=== PATIENT | female | born 1935 | race Caucasian/White ===

== ENCOUNTER → 2024-07-27 | Outpatient (CLI) | payer MEDICARE, SELFPAY ==
[2024-07-27 16:29] LABS: Alanine Aminotransferase 66 U/L (10-49); Albumin, Serum 4.4 gm/dL (3.4-4.8); Alkaline Phosphatase 115 U/L (46-116); Anion Gap 7 (7-16); Aspartate Amino Transferase 77 U/L (0-34); BUN/Creatinine Ratio 23 Ratio (12-20); Bilirubin,Direct 0.1 mg/dL (0.0-0.3); Bilirubin,Total 0.4 mg/dL (0.3-1.2); Blood Urea Nitrogen 34 mg/dL (9-23); Calcium 9.3 mg/dL (8.3-10.6); Carbon Dioxide 29.4 mMol/L (20.0-31.0); Chloride 103 mMol/L (98-107); Creatinine (Component) 1.5 mg/dL (0.6-1.3); Glucose 121 mg/dL (74-106); Osmolality,Calculated 286 (275-295); Phosphorous 3.4 mg/dL (2.4-5.1); Potassium 4.5 mMol/L (3.4-5.1); Sodium 139 mMol/L (136-145); Total Protein 6.7 gm/dL (5.7-8.2); eGFR 33 See Note
== END | disposition home or self-care (01) ==
LOC: COPL 14:27
PROVIDERS: PCP Family Medicine; Referring Provider Family Medicine; Visit Provider Internal Medicine Cardiovascular Disease
DX: I48.21 Permanent atrial fibrillation (principal); N18.2 Chronic kidney disease, stage 2 (mild); R74.01 Elevation of levels of liver transaminase levels
CPT/HCPCS: 36415; 80048; 80069; 80076; 84100

== ENCOUNTER → 2024-09-20 | Outpatient (CLI) | payer MEDICARE, SELFPAY ==
[2024-09-20 11:34] LABS: Glucose Estimated Average 117 mg/dL (80-131); Hemoglobin A1C 5.7 % Hgb (4.8-6.0)
[2024-09-20 11:50] LABS: Alanine Aminotransferase 50 U/L (10-49); Albumin, Serum 4.1 gm/dL (3.4-4.8); Alkaline Phosphatase 90 U/L (46-116); Anion Gap 7 (7-16); Aspartate Amino Transferase 46 U/L (0-34); BUN/Creatinine Ratio 18 Ratio (12-20); Bilirubin,Direct 0.1 mg/dL (0.0-0.3); Bilirubin,Total 0.4 mg/dL (0.3-1.2); Blood Urea Nitrogen 22 mg/dL (9-23); Calcium 9.1 mg/dL (8.3-10.6); Carbon Dioxide 34.3 mMol/L (20.0-31.0); Chloride 102 mMol/L (98-107); Creatinine (Component) 1.2 mg/dL (0.6-1.3); Glucose 117 mg/dL (74-106); Osmolality,Calculated 289 (275-295); Phosphorous 3.1 mg/dL (2.4-5.1); Potassium 4.4 mMol/L (3.4-5.1); Sodium 143 mMol/L (136-145); Total Protein 6.5 gm/dL (5.7-8.2); eGFR 44 See Note
[2024-09-20 13:09] LABS: Creatinine MALB Rnd Ur 22 mg/dL (30-125); Microalbumin, Random Urine < 3 mg/L (0-300)
== END | disposition home or self-care (01) ==
LOC: COPL 10:40
PROVIDERS: PCP Family Medicine; Referring Provider Internal Medicine Cardiovascular Disease; Visit Provider Internal Medicine Cardiovascular Disease
DX: E11.22 Type 2 diabetes mellitus with diabetic chronic kidney disease (principal); N18.2 Chronic kidney disease, stage 2 (mild); R74.01 Elevation of levels of liver transaminase levels; I48.21 Permanent atrial fibrillation
CPT/HCPCS: 36415; 80048; 80076; 82043; 82570; 83036; 84100

== ENCOUNTER → 2024-12-12 | Outpatient (CLI) | payer MEDICARE, SELFPAY ==
[2024-12-12 10:35] LABS: Basophils % (Auto) 1 % (0-2.5); Eosinophils # (Auto) 0.1 Thou/mm3 (0.0-0.5); Eosinophils % (Auto) 2 % (0-10); Immature Granulocytes % (Auto) 0 % (0-0); Immature Granulocytes Auto 0.02 Thou/mm3 (0.00-0.00); Lymphocytes # (Auto) 2.1 Thou/mm3 (1.0-4.8); Lymphocytes % (Auto) 32 % (10-50); Mean Corpuscular HGB Conc 32.5 g/dl (31.0-37.0); Mean Corpuscular Hemoglobin 32.8 pg (25.0-35.0); Mean Corpuscular Volume 101 fL (80-100); Monocytes # (Auto) 0.8 Thou/mm3 (0.0-0.8); Monocytes % (Auto) 13 % (0-12); Neutrophils # (Auto) 3.5 Thou/mm3 (1.8-7.7); Neutrophils % (Auto) 53 % (37-80); Nucleated Red Blood Cell % 0 /100 WBC (0); Platelet Count 236 Thou/mm3 (140-440); RDW Standard Deviation 50.4 fL (36.4-46.3); Red Blood Count 3.96 Miln/mm3 (4.00-5.20); White Blood Count 6.7 Thou/mm3 (3.6-11.0)
[2024-12-12 10:54] LABS: Alanine Aminotransferase 20 U/L (10-49); Albumin, Serum 4.4 gm/dL (3.4-4.8); Albumin/Globulin Ratio 1.8 (1.2-2.2); Alkaline Phosphatase 84 U/L (46-116); Anion Gap 7 (7-16); Aspartate Amino Transferase 28 U/L (0-34); BUN/Creatinine Ratio 19 Ratio (12-20); Bilirubin,Total 0.4 mg/dL (0.3-1.2); Blood Urea Nitrogen 23 mg/dL (9-23); Calcium 9.1 mg/dL (8.3-10.6); Calcium (Corrected) 9.1 mg/dL (8.5-10.1); Carbon Dioxide 31.7 mMol/L (20.0-31.0); Chloride 101 mMol/L (98-107); Creatinine (Component) 1.2 mg/dL (0.6-1.3); Globulin 2.5 gm/dL (2.3-3.5); Glucose 135 mg/dL (74-106); Osmolality,Calculated 285 (275-295); Potassium 4.1 mMol/L (3.4-5.1); Sodium 140 mMol/L (136-145); Total Protein 6.9 gm/dL (5.7-8.2); eGFR 44 See Note
[2024-12-12 12:04] LABS: Glucose Estimated Average 123 mg/dL (80-131); Hemoglobin A1C 5.9 % Hgb (4.8-6.0)
== END | disposition home or self-care (01) ==
LOC: COPL 09:45
PROVIDERS: PCP Family Medicine; Referring Provider Family Medicine; Visit Provider Family Medicine
DX: E11.22 Type 2 diabetes mellitus with diabetic chronic kidney disease (principal); N18.9 Chronic kidney disease, unspecified; E11.42 Type 2 diabetes mellitus with diabetic polyneuropathy
CPT/HCPCS: 36415; 80053; 83036; 85025

== ENCOUNTER 2025-01-11 10:30 | Outpatient (RCR) | payer MEDICARE, SELFPAY ==
--- NOTE | 2024-12-19 09:59 | PT.OIERPT ---
PT OP Initial Eval Patient Information Outpatient Physical Therapy Treatment Date: 12/19/24 Visit Reasons: Neuropathy Medical Diagnosis: Peripheral Neuropathy; Falls; Decrease balance Treatment Dx #1: BLE Weakness Treatment Dx #2: Falls Start of Care: 12/19/24 Date of Onset: 1.5 years ago Smoking Status Smoking Status: Never smoker Initial Assessment Subjective: Pt is a 89 y/o female reports of BLE weakness and constant numbness since her back surgery where her bottom back was fused. Pt can still transfer and perform bed mobility, however, has not walked since the surgery. Pt has limitation with prolonged sitting, standing, and performing recreational activities. Pt owns a manual w/c, power w/c, and does not own a walker. Pt is currently a resident at [facility]. Objective: BLE AROM: all motions are 75% towards end range BLE MMTs: grossly 3+/5 Sit-Stand Test: 4 reps Assessment: Pt demonstrate BLE weakness and overall mobility leading to difficulty with ADLs. Pt will benefit from physical therapy to increase ROM, strength, and work on ambulation as able Short Term and Afternoon Babysitter Goals 1) Increase BLE AROM WNL in 9 wks to be able to perform self care activities 2) Increase BLE MMTs grossly to 4-/5 in 9 wks to be able to perform chores 3) Increase sit-stand reps to 8 in 9 wks to be able to stand longer 4) Increase overall endurance to be able to walk with walker within her resident 5) Indep with HEP Treatment Plan 1) Manual Therapy 2) Therapeutic Activities 3) Therapeutic Exercises 4) Balance Training 5) Gait Training Frequency and Duration: 2 x wk for 9 wks Certification Dates: 12/19/24 to 03/21/25 Procedure Charges OP PT Eval Mod Complex 30 minutes: Yes
--- NOTE | 2024-12-26 10:52 | PT.ODAYNRPT ---
PT Outpatient Daily Note OP Daily Note Outpatient Physical Therapy Treatment Date: 12/26/24 Visit Reasons: Neuropathy Subjective: Pt c/o weakness. Pt shared she lives at [facility], they supply meals but she performs all other self care activities. Objective: Please see flow sheet for ther ex list. Assessment: Interventions given alternating sitting and standing to maximize pt participation. Plan: Assess response to treatment. Length of Time (minutes) of Treatment: 30 Minutes PIPE FITTER SUPERVISOR Service Modifier Method I: Divide the number of min of care provided by the PIPE FITTER SUPERVISOR/LAVINIA by the total min of care provided then multiply by 100. If greater than 11 percent modifier is required. Method II: Divide the total time of care provided to patient by 10 (round to the nearest whole number) and add 1 min. to set the minimum time requirement. If treatment total was 60 min., then 10% of 6 min PT CQ modifier applied: CQ Modifier applied Procedure Charges Therapeutic Exercise 30 minutes: Yes
--- NOTE | 2024-12-28 10:55 | PT.ODAYNRPT ---
PT Outpatient Daily Note OP Daily Note Outpatient Physical Therapy Treatment Date: 12/28/24 Visit Reasons: Neuropathy Subjective: Pt's legs feels weak. Pt almost fell a few days ago. Objective: Please see flow chart for list of ther ex performed Assessment: left knee buckle with standing marching towards the end of exercise. Pt unable to perform standing calf raise due to gastroc weakness modified to sitting position Plan: Continue with PT Length of Time (minutes) of Treatment: 30 Minutes Procedure Charges Therapeutic Exercise 30 minutes: Yes
--- NOTE | 2025-01-02 11:23 | PT.ODAYNRPT ---
PT Outpatient Daily Note OP Daily Note Outpatient Physical Therapy Treatment Date: 01/02/25 Visit Reasons: Neuropathy Subjective: Pt denies of soreness post PT session. Pt mentioned her left knee feels weaker. Objective: Please see flow chart for list of ther ex performed Assessment: x2 knee buckle on the left LE during sit to stand exercise, however, able to catch self with hands on the parallel bar. Pt fatigue post PT session Plan: Continue with PT Length of Time (minutes) of Treatment: 30 Minutes Procedure Charges Therapeutic Exercise 30 minutes: Yes
--- NOTE | 2025-01-04 12:52 | PT.ODAYNRPT ---
PT Outpatient Daily Note OP Daily Note Outpatient Physical Therapy Treatment Date: 01/04/25 Visit Reasons: Neuropathy Subjective: Pt's legs sore after last session. Objective: Please see flow chart for list of ther ex performed Assessment: patient able to do side step 2 x 3 laps with 2 incident of left knee buckling. Pt is progressing with LE endurance and strength by being able to stand longer in PT session Plan: Continue with PT Length of Time (minutes) of Treatment: 30 Minutes Procedure Charges Therapeutic Exercise 30 minutes: Yes
--- NOTE | 2025-01-09 15:09 | PT.ODAYNRPT ---
PT Outpatient Daily Note OP Daily Note Outpatient Physical Therapy Treatment Date: 01/09/25 Visit Reasons: Neuropathy Subjective: Pt reports she is more tired today that usual, she had another doctor appointment earlier. Objective: Please see flow sheet for ther ex list. Assessment: Pt presents in clinic with decrease endurance, B UE shaky during STS exercise. Plan: Continue with pOC. Length of Time (minutes) of Treatment: 30 Minutes Procedure Charges Therapeutic Exercise 30 minutes: Yes
--- NOTE | 2025-01-11 10:33 | PT.ODAYNRPT ---
PT Outpatient Daily Note OP Daily Note Outpatient Physical Therapy Treatment Date: 01/11/25 Visit Reasons: Neuropathy Subjective: Pt's legs are okay. Pt mentioned it was sore after last session. Pt also notice sit to stand is getting easier at home. Objective: Please see flow chart for list of ther ex performed Assessment: tolerate exercises with minimal pain Plan: Continue with PT Length of Time (minutes) of Treatment: 30 Minutes Procedure Charges Therapeutic Exercise 30 minutes: Yes
== END 2025-01-13 23:59 | disposition home or self-care (01) ==
LOC: CPTX 10:30
PROVIDERS: PCP Psychiatry & Neurology Neurology; Referring Provider Psychiatry & Neurology Neurology; Visit Provider Psychiatry & Neurology Neurology
DX: R53.1 Weakness (principal); R26.2 Difficulty in walking, not elsewhere classified; G62.9 Polyneuropathy, unspecified; Z98.890 Other specified postprocedural states
CPT/HCPCS: 97110; 97162

== ENCOUNTER 2025-02-08 10:00 | Outpatient (RCR) | payer MEDICARE, SELFPAY ==
--- NOTE | 2025-01-23 10:49 | PT.ODAYNRPT ---
PT Outpatient Daily Note OP Daily Note Outpatient Physical Therapy Treatment Date: 01/23/25 Visit Reasons: Neuropathy Subjective: Pt reports continuing use of w/c and sometimes use electric powered w/c. Pt shared that she has neuropathy on B LE. Objective: Please see flow sheet for ther ex list. Assessment: Pt B knee buckled during GT in parallel bars, pt able to hold self up using B UE from bars and LAST MODEL MAKER assisted for pt to recover standing position. Pt able to ambulate back to chair then rested a few minutes. Plan: Continue with pOC. Length of Time (minutes) of Treatment: 30 Minutes LAST MODEL MAKER Service Modifier Method I: Divide the number of min of care provided by the LAST MODEL MAKER/AMUSEMENT RIDE OPERATOR by the total min of care provided then multiply by 100. If greater than 11 percent modifier is required. Method II: Divide the total time of care provided to patient by 10 (round to the nearest whole number) and add 1 min. to set the minimum time requirement. If treatment total was 60 min., then 10% of 6 min PT CQ modifier applied: CQ Modifier applied Procedure Charges Therapeutic Exercise 30 minutes: Yes
--- NOTE | 2025-01-25 13:05 | PT.ODAYNRPT ---
PT Outpatient Daily Note OP Daily Note Outpatient Physical Therapy Treatment Date: 01/25/25 Visit Reasons: Neuropathy Subjective: No new complalints. Objective: Please see flow sheet for ther ex list. Assessment: Pt relied heavy on PSYCH TECH to stand from sitting in w/c due to poor LE strength. Plan: Continue with pOC. Length of Time (minutes) of Treatment: 30 Minutes Procedure Charges Therapeutic Exercise 30 minutes: Yes
--- NOTE | 2025-01-30 12:47 | PT.ODS1RPT ---
PT OP Progress/Discharge Note Date of Service: 01/30/25 Progress Note/DC Note Progress Note/Discharge Note: Progress Note Patient Information Visit Reasons: Neuropathy Medical Diagnosis: Peripheral Neuropathy; Falls; Decrease Balance Treatment Dx #1: BLE Weakness Treatment Dx #2: Falls Service Continue Service or Discharge: Continue Service Certification Date Certification Dates: 01/30/25 to 05/02/25 Status Subjective: Pt feels that she's doing better in physical therapy. Pt has been able to start walking more inside the parallel bars. Pt also reports of increase BLE strength allowing her to stand and perform light ADLs at home with less limitation. Pt still has limitation with prolonged activities due to BLE fatigue. Pt will like to continue physical therapy to increase BLE strength, balance, and work on endurance. Objective: BLE AROM: all motions are 85% towards end range BLE MMTs: grossly 3+/5 Sit-Stand Test: 6 reps Gait Observation: narrow suni with decrease step length with FWW Assessment: Pt is slowly progressing with BLE strength, endurance, and balance allowing her to start ambulating in therapy with walker. Despite Pt's improvement Pt still exhibit BLE weakness, decondition, and decrease dynamic balance. Pt has not met set goals and will continue to benefit from physical therapy to improve impairments; thank you for your referrals. Plan: Continue with PT/POC and add 6 sessions (2 x wk for 3 wks Procedure Charges Gait Training 15 minutes: Yes Therapeutic Exercise 15 minutes: Yes
--- NOTE | 2025-02-01 10:55 | PTNOTE_ITS ---
PT Outpatient Daily Note OP Daily Note Outpatient Physical Therapy Treatment Date: 02/01/25 Visit Reasons: Neuropathy Subjective: Pt reports she was content to be able to walk in the clinic last time she came to PT. Objective: Please see flow sheet for ther ex list. Assessment: Pt demonstrates improved endurance, ambulated ~30ft x 2 using FWW. Plan: Continue with POC. Length of Time (minutes) of Treatment: 30 Minutes INSTALLATION SUPERVISOR Service Modifier Method I: Divide the number of min of care provided by the INSTALLATION SUPERVISOR/LAVINIA by the total min of care provided then multiply by 100. If greater than 11 percent modifier is required. Method II: Divide the total time of care provided to patient by 10 (round to the nearest whole number) and add 1 min. to set the minimum time requirement. If treatment total was 60 min., then 10% of 6 min PT CQ modifier applied: CQ Modifier applied Procedure Charges Therapeutic Exercise 30 minutes: Yes
--- NOTE | 2025-02-08 10:32 | PTNOTE_ITS ---
PT Outpatient Daily Note OP Daily Note Outpatient Physical Therapy Treatment Date: 02/08/25 Visit Reasons: Neuropathy Subjective: Pt reports feeling progress, getting stronger. Objective: Please see flow sheet for ther ex list. Assessment: Pt demonstrates increase endurance and LE strength, ambulated ~150 ft in clinic today using FWW with one seated rest break. Plan: Continue with pOC, work on STS. Length of Time (minutes) of Treatment: 30 Minutes LABORATORY MANAGER Service Modifier Method I: Divide the number of min of care provided by the LABORATORY MANAGER/LAVINIA by the total min of care provided then multiply by 100. If greater than 11 percent modifier is required. Method II: Divide the total time of care provided to patient by 10 (round to the nearest whole number) and add 1 min. to set the minimum time requirement. If treatment total was 60 min., then 10% of 6 min PT CQ modifier applied: CQ Modifier applied Procedure Charges Therapeutic Exercise 30 minutes: Yes
== END 2025-02-12 23:59 | disposition home or self-care (01) ==
LOC: CPTX 10:00
PROVIDERS: PCP Psychiatry & Neurology Neurology; Referring Provider Psychiatry & Neurology Neurology; Visit Provider Psychiatry & Neurology Neurology
DX: R53.1 Weakness (principal); R20.0 Anesthesia of skin; Z91.81 History of falling; G62.9 Polyneuropathy, unspecified
CPT/HCPCS: 97110; 97116

== ENCOUNTER 2025-02-12 18:56 | Emergency (ER) | payer MEDICARE, SELFPAY ==
[2025-02-12] VITALS (14 sets, daily range): BP systolic 121–235; BP diastolic 52–110; PULSE 60–168; RESP 16–36; TEMP 36.8–37.2; O2SAT 91–97; BMI 34.5
--- NOTE | 2025-02-12 19:48 | PD.EDEPIST ---
ED Epistaxis RME/HPI General Chief complaint: Epistaxis/Nasal Foreign Body Stated complaint: NOSE BLEED Time Seen by Provider: 02/12/25 20:12 Arrival date/time: 02/12/25 18:56 RME / HPI RME / HPI Narrative: Dr. Morillo?s Main ED Evaluation: 89yo female JAYDE from home presents to the ED for a chief complaint of epistaxis. 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 She is on blood thinners, but does not know why. Patient denies any trauma. She denies any other associated symptoms. NKA. Related Data Home Medications ?Medication ?Instructions ?Recorded ?Confirmed vilazodone 40 mg tablet (Viibryd) 40 mg PO DAILY DEPRESSION ##0 04/02/13 simvastatin 40 mg tablet (Zocor) 40 mg PO HS CHOLESTEROL #0 tabs 05/21/14 tramadol 50 mg tablet (Ultram) 50 mg PO Q8HR PRN PAIN #0 tabs 05/21/14 Memantine Hcl * (NAMENDA *) 28 mg PO QDAY DEMENTIA #0 tabs 02/21/15 amlodipine 5 mg tablet (Norvasc) 5 mg PO QDAY High Blood Pressure 05/16/15 #0 tabs hydrochlorothiazide 25 mg tablet 25 mg PO QAM Diuretic #0 tabs 05/16/15 Losartan Potassium * (COZAAR *) 100 mg PO QDAY High Blood Pressure 06/16/15 #0 tabs hydroxyzine HCl 25 mg tablet 25 mg PO Q8HR PRN ANXIETY #0 tabs 06/16/15 metoprolol succinate 100 mg 100 mg PO QDAY High Blood Pressure 06/16/15 tablet,extended release 24 hr ##0 (Toprol XL) gabapentin 300 mg capsule 300 mg PO TID #0 caps 07/22/15 quetiapine 100 mg tablet (Seroquel) 100 mg PO HS #0 tabs 07/22/15 Allergies Allergy/AdvReac Type Severity Reaction Status Date / Time NKA* Allergy Uncoded 02/12/25 19:24 Review of Systems Review of Systems Systems Reviewed: All systems reviewed, normal except as documented Past Medical History Past Medical History CARDIAC: Positive Hypertension; Negative Congestive Heart Failure RESPIRATORY: Negative Chronic Obstructive Pulmonary Disease (COPD) GENITOURINARY: Negative Renal Disease ENDOCRINE: Negative Diabetes Mellitus Type 1 or Diabetes Mellitus Type 2 Social History SMOKING STATUS: Never smoker ED Exam Narrative Physical exam: GEN. APPEARANCE: The patient is alert awake oriented X-3 in no distress, lying down comfortably, does not look ill/toxic. Patient has good eye contact. Patient is cooperative. VITALS: All vitals were reviewed and the pulse ox is 93% on room air which is normal according to my interpretation. HEENT: Normocephalic, atraumatic. Pupils are equal and reactive. Oral mucosa is moist. Patent Nares NECK: Supple, nontender, no thyromegaly, no meningismus, no JVD CHEST: Symmetrical, atraumatic, and with equal expansion , Nontender on palpation no deformity and no crepitus. CARDIOVASCULAR: Heart regular rhythm no murmur or gallop rub or extra beats. LUNGS: Clear to auscultation bilaterally with symmetrical chest rise. No laboring tachypnea or wheezing. No intercostal subcostal retraction. No rales and no rhonchi. ABDOMEN: Soft, flat, nontender to palpation, no guarding or rebound tenderness. There are no abnormal masses palpated. Active and normal bowel sounds. EXTREMITIES: Nontender. No edema. No cyanosis. Patient is able to move all 4 extremities well, with full ROM and good CSM. SKIN: Warm and dry, no jaundice or rashes noted. NEURO: Patient is SAGASTUME x 4, Cranial nerves II through XII grossly intact. There is no focal neurologic deficits noted. GCS is 15, PNS and CENTER MACHINE OPERATOR appear grossly intact. PSYCHIATRIC: Patient is in normal mood and affect. Course Quality Measures none Orders Category Date Time Status IV [Insert IV] STAT Care 02/12/25 19:42 Active CBC Stat Lab 02/12/25 20:30 Completed CMP [Comprehensive Metabolic Panel] Stat Lab 02/12/25 20:30 Completed PT [Prothrombin Time with INR] Stat Lab 02/12/25 20:30 Completed Type and Screen Stat Lab 02/12/25 20:30 Completed LORazepam [Ativan] Med 02/12/25 22:50 Discontinued 0.5 mg PO X1 ONE Labetalol IV [Trandate IV] Med 02/12/25 20:13 Discontinued 10 mg IVP X1 ONE Tranexamic Acid Inj Med 02/12/25 21:26 Discontinued 500 mg TOP NOW ONE hydrALAZINE INJ [Apresoline Inj] Med 02/12/25 21:24 Discontinued 10 mg IVP X1 ONE Reevaluation(s) Reevaluation #1: Patient is still having epistaxis. TXA ordered. She is also still hypertensive. Hydralazine 10mg ordered. Time: 21:19 Reevaluation #2: Rhino rocket was removed. No blood noted on the rhino rocket or in the patient's right nare. Patient is breathing comfortably. Patient is stable to be discharged home. Time: 23:41 Vital Signs Vital signs: Vital Signs Temperature 98.3 F 02/12/25 19:03 Pulse Rate 60 02/12/25 19:03 Respiratory Rate 19 02/12/25 19:03 Blood Pressure 197/104 H 02/12/25 19:03 Pulse Oximetry (%) 93 L 02/12/25 19:03 Oxygen Delivery Method Room Air 02/12/25 19:03 PROCEDURES: Epistaxis Control Time Out Performed: No Nostril: right Nose Prepped With: other (TXA) Direct Inspection: yes Clots Removed by: blowing nose and suction Device Inserted: other (7.5 rhino rocket which was removed and replaced with a 5 rhino rocket) Patient Tolerated Procedure: Well and No Complications Epistaxis MDM Narrative MDM Narrative:: Scribe Attestation: 02/12/25 - Rachel Moore am scribing for and in the presence of Dr. Morillo. Patient presents with a nosebleed that started this spontaneously. Patient is taking a blood thinner. Vital signs exam as listed. Concern for anterior epistaxis, patient without any trauma, no fevers no chills no face pain. Less likely acute intracranial trauma facial trauma, intracranial space-occupying lesion, arteriovenous malformation. Bleeding is oozing not brisk nor pulsatile. Proceeded with providing patient with direct pressure along the epistaxis, unclear if its bilateral naris at this time appears to be just the right nare. After period of applying direct pressure, patient's blood pressure remained greater than 200, and patient epistaxis was not well-controlled when the pressure device on patient's stairs was removed. Provided patient with her home dose of her blood pressure medication as well as a dose of IV blood pressure medication here. Also inserted a Rhino Rocket soaked in TXA. Bleeding was well-controlled, blood pressure significantly proved patient felt better. Patient was concerned that there was still some oozing from the Rhino Rocket minimal mucus was appreciated. I did remove the Rhino Rocket, did not appreciate any bleeding however there was a little bit of blood in the right nare, nothing coming out of the left nare. I did replace a right sided Rhino Rocket size 5 soaked in TXA in the right nare. Left-sided for period of time. Went to reevaluate the patient, no more bleeding from the nare, blood pressure well-controlled, no more bleeding appreciated. Removed the Rhino Rocket, Rhino Rocket was clear, no blood on the Rhino Rocket anymore. No recurrence of bleeding. Patient remained hemodynamically stable not in distress with labs reassuring will discharge home with close return precautions follow-up with her primary care doctor. Patient data External records reviewed:: [facility] previous records (Per chart review, patient has no relevant previous ED visits or admissions to this facility.) and EMS form Clinical information provided by:: patient Social determinants that could affect healthcare access:: none Patient has the following chronic illnesses:: HTN How is presenting disease/condition affected by chronic disease/condition?: exacerbated by Evaluation data The following diagnostics were reviewed and interpreted by me:: lab results Lab and/or radiology exams considered but not ordered:: none Interpretation Summary: CBC and CMP normal. Medications / Prescriptions Medications or Prescriptions considered but not ordered:: none Medication administrations:: Medication Administration History Discontinued Medications Hydralazine HCl (Hydralazine Inj 20 Mg/Ml Vial) 10 mg IVP X1 ONE Stop: 02/12/25 21:25 Last Admin: 02/12/25 21:40 Dose: 10 mg Documented By: CG Labetalol HCl (Labetalol Inj 5 Mg/Ml Vial 20 Ml) 10 mg IVP X1 ONE Stop: 02/12/25 20:14 Last Admin: 02/12/25 20:50 Dose: 10 mg Documented By: CB Lorazepam (Lorazepam 0.5 Mg Tablet) 0.5 mg PO X1 ONE Stop: 02/12/25 22:51 Last Admin: 02/12/25 22:57 Dose: 0.5 mg Documented By: CG Tranexamic Acid (Tranexamic Acid Inj 1,000 Mg/10 Ml Vial) 500 mg TOP NOW ONE Stop: 02/12/25 21:27 Last Admin: 06/30/25 21:41 Dose: 500 mg Documented By: CG see above Consultations Consultation(s) initiated? (list below): No Diagnosis Epistaxis Differential Diagnosis: anterior epistaxis, posterior epistaxis and other (medication side effect) Most likely diagnosis given after review of the tests above:: see clinical impression below Admission Indicated Admission indicated?: not indicated Admission Request Was there a request for admission?: No Disposition Plan Disposition Plan: Discharge Discharge Attestation Discharge Attestation: The patient and all family members were given an opportunity to ask questions and understood the discharge instructions. Discharge instructions specifically effects, indications for sooner follow up or return to the emergency department, and the expected course of current diagnosis. Patient condition: Stable Discharge Plan Plan Patient Disposition: HOME (Self Care) Prescriptions/Referrals Prescriptions/Med Rec: No Action vilazodone [Viibryd] 40 MG tablet 40 mg PO DAILY Qty: 0 tramadol [Ultram] 50 MG tablet 50 mg PO Q8HR PRN (Reason: PAIN) Qty: 0 Patient Comments: FOR PAIN, NOT TO EXCEED 8 TABS IN 24 HRS simvastatin [Zocor] 40 MG tablet 40 mg PO HS Qty: 0 Memantine Hcl * (NAMENDA *) tablet 28 mg PO QDAY Qty: 0 amlodipine [Norvasc] 5 MG tablet 5 mg PO QDAY Qty: 0 hydrochlorothiazide 25 MG tablet 25 mg PO QAM Qty: 0 metoprolol succinate [Toprol XL] 100 MG tablet extended release 24 hr 100 mg PO QDAY Qty: 0 hydroxyzine HCl 25 MG tablet 25 mg PO Q8HR PRN (Reason: ANXIETY) Qty: 0 Losartan Potassium * (COZAAR *) 100 MG tablet 100 mg PO QDAY Qty: 0 quetiapine [Seroquel] 100 MG tablet 100 mg PO HS Qty: 0 gabapentin 300 MG capsule 300 mg PO TID Qty: 0 Referrals: Eva Ozuna MD [Primary Care Provider] - In 1 week Problem List Clinical Impression: Epistaxis Patient/Caregiver Discharge Instructions Education Materials: ED Epistaxis (Adult) Print Language: Kyrgyz Stand Alone Forms: Georgette Award Info., Patient Portal Info Letter
[2025-02-12] MEDS: LABETALOL INJ 5 MG/ML VIAL 20 ML 10 MG IVP (20:50)
[2025-02-12 21:00] LABS: Basophils # (Auto) 0.1 Thou/mm3 (0.0-0.2); Basophils % (Auto) 1 % (0-2.5); Eosinophils # (Auto) 0.1 Thou/mm3 (0.0-0.5); Eosinophils % (Auto) 2 % (0-10); Hematocrit 41.2 % (36.0-46.0); Hemoglobin 13.6 g/dL (12.0-16.0); Immature Granulocytes Auto 0.03 Thou/mm3 (0.00-0.00); Lymphocytes # (Auto) 2.7 Thou/mm3 (1.0-4.8); Lymphocytes % (Auto) 35 % (10-50); Mean Corpuscular HGB Conc 33.0 g/dl (31.0-37.0); Mean Corpuscular Hemoglobin 32.3 pg (25.0-35.0); Mean Corpuscular Volume 98 fL (80-100); Monocytes # (Auto) 0.9 Thou/mm3 (0.0-0.8); Monocytes % (Auto) 12 % (0-12); Neutrophils # (Auto) 3.9 Thou/mm3 (1.8-7.7); Neutrophils % (Auto) 50 % (37-80); Nucleated Red Blood Cell # 0.00 Thou/mm3 (0.00-0.00); Nucleated Red Blood Cell % 0 /100 WBC (0); Platelet Count 258 Thou/mm3 (140-440); RDW Standard Deviation 50.2 fL (36.4-46.3); Red Blood Count 4.21 Miln/mm3 (4.00-5.20); White Blood Count 7.7 Thou/mm3 (3.6-11.0)
[2025-02-12 21:14] LABS: INR 1.0 (0.9-1.3); Prothrombin Time 11.3 Seconds (9.0-12.2)
[2025-02-12 21:21] LABS: Alanine Aminotransferase 13 U/L (10-49); Albumin, Serum 4.5 gm/dL (3.4-4.8); Albumin/Globulin Ratio 1.7 (1.2-2.2); Alkaline Phosphatase 87 U/L (46-116); Anion Gap 7 (7-16); Aspartate Amino Transferase 22 U/L (0-34); BUN/Creatinine Ratio 15 Ratio (12-20); Bilirubin,Total 0.3 mg/dL (0.3-1.2); Blood Urea Nitrogen 16 mg/dL (9-23); Calcium 8.9 mg/dL (8.3-10.6); Calcium (Corrected) 8.9 mg/dL (8.5-10.1); Carbon Dioxide 28.8 mMol/L (20.0-31.0); Chloride 104 mMol/L (98-107); Creatinine (Component) 1.1 mg/dL (0.6-1.3); Estimated Creatinine Clearance 37.3 mL/min (>60); Globulin 2.6 gm/dL (2.3-3.5); Glucose 116 mg/dL (74-106); Osmolality,Calculated 281 (275-295); Potassium 4.0 mMol/L (3.4-5.1); Sodium 140 mMol/L (136-145); Total Protein 7.1 gm/dL (5.7-8.2); eGFR 48 See Note
[2025-02-12] MEDS: hydrALAZINE INJ 20 MG/ML VIAL 10 MG IVP (21:40)
[2025-02-12] MEDS: TRANEXAMIC ACID INJ 1,000 MG/10 ML VIAL 500 MG TOP (21:41)
[2025-02-13 00:04] VITALS: BP 134/65; PULSE 80; RESP 20; TEMP 36.7; O2SAT 95
== END 2025-02-13 00:05 | disposition home or self-care (01) ==
PROVIDERS: Emergency Provider Emergency Medicine; PCP Family Medicine
DX: R04.0 Epistaxis (principal)
CPT/HCPCS: 30901; 36415; 80053; 85025; 85610; 86850; 86900; 86901; 96374; 96375; 99284; J0360; J3490; A9270; J1920

== ENCOUNTER 2025-03-15 11:00 | Outpatient (RCR) | payer MEDICARE, SELFPAY ==
--- NOTE | 2025-02-21 11:55 | PT.ODAYNRPT ---
PT Outpatient Daily Note OP Daily Note Outpatient Physical Therapy Treatment Date: 02/21/25 Visit Reasons: Neuropathy Subjective: Pt reports she has not been doing HEP or walking since she was here in PT last. Objective: Please see flow sheet for ther exlist. Assessment: Pt presents in clinicn with decrease endurance but able to ambulate in clinic with FWW ~80 ft with rest breaks in between. Plan: Continue with poC. Length of Time (minutes) of Treatment: 30 Minutes PLANT PHYSIOLOGIST Service Modifier Method I: Divide the number of min of care provided by the PLANT PHYSIOLOGIST/BILINGUAL CUSTOMER SERVICE SPECIALIST by the total min of care provided then multiply by 100. If greater than 11 percent modifier is required. Method II: Divide the total time of care provided to patient by 10 (round to the nearest whole number) and add 1 min. to set the minimum time requirement. If treatment total was 60 min., then 10% of 6 min PT CQ modifier applied: CQ Modifier applied Procedure Charges Therapeutic Exercise 30 minutes: Yes
--- NOTE | 2025-02-27 14:04 | PT.ODAYNRPT ---
PT Outpatient Daily Note OP Daily Note Outpatient Physical Therapy Treatment Date: 02/27/25 Visit Reasons: Neuropathy Subjective: Pt reports she is trying to spend more time on her feet when she can but it is hard for her to find somewhere she can walk safely while having someone watch her. Objective: Please see flow sheet for ther ex list. Assessment: Pt demonstrates increase tolerance with closed chain interventions. Pt educated on STS working on eccentric lowering into chair, pt tends to plop down in her chair. Plan: Continue with poC. Length of Time (minutes) of Treatment: 30 Minutes ASSISTANT WOMEN'S ROWING COACH Service Modifier Method I: Divide the number of min of care provided by the ASSISTANT WOMEN'S ROWING COACH/ASSISTANT BUSINESS MANAGER by the total min of care provided then multiply by 100. If greater than 11 percent modifier is required. Method II: Divide the total time of care provided to patient by 10 (round to the nearest whole number) and add 1 min. to set the minimum time requirement. If treatment total was 60 min., then 10% of 6 min PT CQ modifier applied: CQ Modifier applied Procedure Charges Therapeutic Exercise 30 minutes: Yes
--- NOTE | 2025-03-01 13:40 | PTNOTE_ITS ---
PT Outpatient Daily Note OP Daily Note Outpatient Physical Therapy Treatment Date: 03/01/25 Visit Reasons: Neuropathy Subjective: Pt reports she is feeling really tired today, has been in and out of doctors appointment. Objective: Please see flow sheet for ther ex list. Assessment: Pt demonstrates fair endurance, able to ambulate with FWW ~160 ft in clinic despite c/o fatigue. Plan: Continue with POC. Length of Time (minutes) of Treatment: 30 Minutes MARINE TOWER OPERATOR Service Modifier Method I: Divide the number of min of care provided by the MARINE TOWER OPERATOR/LAVINIA by the total min of care provided then multiply by 100. If greater than 11 percent modifier is required. Method II: Divide the total time of care provided to patient by 10 (round to the nearest whole number) and add 1 min. to set the minimum time requirement. If treatment total was 60 min., then 10% of 6 min PT CQ modifier applied: CQ Modifier applied Procedure Charges Therapeutic Exercise 30 minutes: Yes
--- NOTE | 2025-03-06 11:32 | PT.ODAYNRPT ---
PT Outpatient Daily Note OP Daily Note Outpatient Physical Therapy Treatment Date: 03/06/25 Visit Reasons: Neuropathy Subjective: Pt's legs are stronger. Pt has been walking more in therapy with confidence. Pt still feels unsafe to use her walker around her living area due to fear of falling. Objective: Please see flow chart for list of ther ex performed Assessment: patient ambulate 100 ft x 2 with walker inside the gym with supervision. Cues to decrease downward gaze but unable due to fear of falling. Pt also had difficulty with static balance due to BLE fatigue with cone stacking exercise Plan: Continue with PT Length of Time (minutes) of Treatment: 30 Minutes Procedure Charges Gait Training 15 minutes: Yes Therapeutic Exercise 15 minutes: Yes
--- NOTE | 2025-03-08 13:38 | PTNOTE_ITS ---
PT Outpatient Daily Note OP Daily Note Outpatient Physical Therapy Treatment Date: 03/08/25 Visit Reasons: Neuropathy Subjective: Pt reports feeling stronger, mentioned she can get out of her chair to transfer when home. Objective: Please see flow sheet for ther exlist. Assessment: Pt demonstrates increase endurance indicated by less seated rest breaks during closed chain interventions. Plan: Continue with poC. Length of Time (minutes) of Treatment: 30 Minutes BISCUIT MACHINE OPERATOR Service Modifier Method I: Divide the number of min of care provided by the BISCUIT MACHINE OPERATOR/LAVINIA by the total min of care provided then multiply by 100. If greater than 11 percent modifier is required. Method II: Divide the total time of care provided to patient by 10 (round to the nearest whole number) and add 1 min. to set the minimum time requirement. If treatment total was 60 min., then 10% of 6 min PT CQ modifier applied: CQ Modifier applied Procedure Charges Therapeutic Exercise 30 minutes: Yes
--- NOTE | 2025-03-13 11:27 | PT.ODAYNRPT ---
PT Outpatient Daily Note OP Daily Note Outpatient Physical Therapy Treatment Date: 03/13/25 Visit Reasons: Neuropathy Subjective: Pt still doesn't have confidence with walking. Pt looks down due to fear of falling. Pt wants to continue physical therapy until she goes on her trip in apr. Objective: Please see flow chart for list of ther ex perfomed Assessment: worked on reaching back with sit to stand to improve safe transition. With practice patient was able to reach back for the armrest and sit safely. Pt has difficulty steering walker R>L and will continue to need practice for safe turning when ambulating with walker. Pt require frequent cues to keep DRAGAN shoulder weight to help with balance in therapy session Plan: Continue with PT Length of Time (minutes) of Treatment: 30 Minutes Procedure Charges Gait Training 15 minutes: Yes Therapeutic Exercise 15 minutes: Yes
--- NOTE | 2025-03-15 11:24 | PT.ODAYNRPT ---
PT Outpatient Daily Note OP Daily Note Outpatient Physical Therapy Treatment Date: 03/15/25 Visit Reasons: Neuropathy Subjective: Pt's confidence with walking is better but she continues to fear a fall. Pt has not attempted walking backward Objective: Please see flow chart for list of ther ex performed Assessment: improved sit to stand and back transition with minimal cues to reach for armrest. Pt continues to ambulate with narrow DRAGAN and needs reminder to increase DRAGAN for better balance. Pt will need more practice with turning using walker for safer transition. Plan: Continue with PT Length of Time (minutes) of Treatment: 30 Minutes Procedure Charges Gait Training 15 minutes: Yes Therapeutic Exercise 15 minutes: Yes
== END 2025-03-15 23:59 | disposition home or self-care (01) ==
LOC: CPTX 11:00
PROVIDERS: PCP Psychiatry & Neurology Neurology; Referring Provider Psychiatry & Neurology Neurology; Visit Provider Psychiatry & Neurology Neurology
DX: R53.1 Weakness (principal); R26.2 Difficulty in walking, not elsewhere classified; R26.89 Other abnormalities of gait and mobility; Z91.81 History of falling; G62.9 Polyneuropathy, unspecified
CPT/HCPCS: 97110; 97116

== ENCOUNTER 2025-04-12 10:30 | Outpatient (RCR) | payer MEDICARE, SELFPAY ==
--- NOTE | 2025-03-20 13:12 | PT.ODAYNRPT ---
PT Outpatient Daily Note OP Daily Note Outpatient Physical Therapy Treatment Date: 03/20/25 Visit Reasons: Neuropathy Subjective: Pt's legs are always numb. Pt feels dizziness and less energy this morning due to only eating donut and half a coffee since cook is out sick. Objective: Please see flow chart for list of ther ex performed Assessment: unable to ambulate much today due to feeling dizziness and more fatigue than usual. Pt performed more seated exercises today for safety. Pt was fatigue and exhausted post PT session and demonstrate more imbalance in parallel bar while ambulating forward and backward. Pt will continue to benefit from practicing how to steer with walker for safety while she continues to have trouble turning around the cones Plan: Conitnue with PT Length of Time (minutes) of Treatment: 30 Minutes Procedure Charges Gait Training 15 minutes: Yes Therapeutic Exercise 15 minutes: Yes
--- NOTE | 2025-03-22 12:02 | PT.ODS1RPT ---
PT OP Progress/Discharge Note Date of Service: 03/22/25 Progress Note/DC Note Progress Note/Discharge Note: Progress Note Patient Information Visit Reasons: Neuropathy Medical Diagnosis: Peripheral Neuropathy; Falls; Decrease Balnce Treatment Dx #1: BLE Weakness Treatment Dx #2: Falls Service Continue Service or Discharge: Continue Service Certification Date Certification Dates: 03/22/25 to 06/22/25 Status Subjective: Pt has good and bad days, however, has been having more good days since starting physical therapy. Pt now has more confidence walking using a walker. Pt still has not attempt walking at assisted living due to no direct supervision where she's afraid of falling. Pt feels that her overall leg strength and endurance has improved allowing her to stand, walk, perform self care activities, and ADLs with less limitation. Pt will like to continue physical therapy to work on her strength, endurance, and walking using a walker. Objective: BLE AROM: all motions are 85% towards end range BLE MMTs: grossly 3+/5 Sit-Stand Test: 5 reps TUG (with FWW): 48 sec Gait Distance (with FWW): ~ 150 ft SBA Assessment: Pt continues to improve with endurance, balance, and gait distance using FWW in therapy allowing her to perform more ADLs with less limitation. Pt still has difficulty with steering and turning walker in narrow space due to lack of confidence with walker usage as well as fair dynamic balance. Pt continues to show improvement with gait distance each week where she is taking less rest break indicating improved BLE endurance and overall strength. Pt has not met set goals and will continue to benefit from physical therapy; thank you for your referrals. Plan: Continue with PT/POC and add 8 sessions (2 x wk for 4 wks) Procedure Charges Gait Training 15 minutes: Yes Therapeutic Exercise 15 minutes: Yes
--- NOTE | 2025-03-29 13:36 | PT.ODAYNRPT ---
PT Outpatient Daily Note OP Daily Note Outpatient Physical Therapy Treatment Date: 03/29/25 Visit Reasons: Neuropathy Subjective: Pt reports progress with standing tolerance. Objective: Please see flow sheet for ther ex list. Assessment: L knee buckling present today during GT, pt rested 3x sitting in w/c during ambulation in clinic. Plan: Continue with POC. Length of Time (minutes) of Treatment: 30 Minutes Procedure Charges Therapeutic Exercise 30 minutes: Yes
--- NOTE | 2025-04-03 14:28 | PT.ODAYNRPT ---
PT Outpatient Daily Note OP Daily Note Outpatient Physical Therapy Treatment Date: 04/03/25 Visit Reasons: Neuropathy Subjective: Pt tired today since therapy is in the late afternoon. Her normal PT sessions are in the morning. Pt will like to take it easier today. Objective: Please see flow chart for list of ther ex performed Assessment: gait training was done in PB per Pt's request today due feeling exhausted due to the time of the day. Cues to keep patient's upward with side step and forward/backward ambulation. Plan: Continue with PT Length of Time (minutes) of Treatment: 30 Minutes Procedure Charges Gait Training 15 minutes: Yes Therapeutic Exercise 15 minutes: Yes
--- NOTE | 2025-04-05 10:37 | PTNOTE_ITS ---
PT Outpatient Daily Note OP Daily Note Outpatient Physical Therapy Treatment Date: 04/05/25 Visit Reasons: Neuropathy Subjective: No new complaints. Objective: Pleae see flow sheet for ther ex list. Assessment: Interventions given alternating sitting and standing to maximize participation due to pt limited endurance. Plan: Continue with pOC. Length of Time (minutes) of Treatment: 30 Minutes IMPREGNATOR AND DRIER HELPER Service Modifier Method I: Divide the number of min of care provided by the IMPREGNATOR AND DRIER HELPER/ADMINISTRATIVE SERVICES OFFICER by the total min of care provided then multiply by 100. If greater than 11 percent modifier is required. Method II: Divide the total time of care provided to patient by 10 (round to the nearest whole number) and add 1 min. to set the minimum time requirement. If treatment total was 60 min., then 10% of 6 min PT CQ modifier applied: CQ Modifier applied Procedure Charges Therapeutic Exercise 30 minutes: Yes
--- NOTE | 2025-04-10 13:07 | PT.ODAYNRPT ---
PT Outpatient Daily Note OP Daily Note Outpatient Physical Therapy Treatment Date: 04/10/25 Visit Reasons: Neuropathy Subjective: Pt reports she feels stronger. Objective: Please see flow sheet for ther ex list. Assessment: Pt demonstrates improvement in endurance with closed chain interventions and GT. Pt instructed to work on sit to stand to work on eccentric quad to sit in chair. Plan: Continue with pOC. Length of Time (minutes) of Treatment: 30 Minutes OUTPLACEMENT CONSULTANT Service Modifier Method I: Divide the number of min of care provided by the OUTPLACEMENT CONSULTANT/[employer] C[employer]ING GROUND MANAGER by the total min of care provided then multiply by 100. If greater than 11 percent modifier is required. Method II: Divide the total time of care provided to patient by 10 (round to the nearest whole number) and add 1 min. to set the minimum time requirement. If treatment total was 60 min., then 10% of 6 min PT CQ modifier applied: CQ Modifier applied Procedure Charges Therapeutic Exercise 30 minutes: Yes
--- NOTE | 2025-04-12 10:58 | PT.ODAYNRPT ---
PT Outpatient Daily Note OP Daily Note Outpatient Physical Therapy Treatment Date: 04/12/25 Visit Reasons: Neuropathy Subjective: Pt is more tired than usual this morning. Pt has anxiety when she has to walk around the cones in therapy. Objective: Please see flow chart for list of ther ex performed Assessment: patient continues to take wide turn with gait training around the cones. Decrease downward gaze noted during gait. Pt had one LOB without needing assistance from therapist during knee curl exercise in walker. Pt was fatigue PT session Plan: Continue with PT Length of Time (minutes) of Treatment: 30 Minutes Procedure Charges Gait Training 15 minutes: Yes Therapeutic Exercise 15 minutes: Yes
== END 2025-04-15 23:59 | disposition home or self-care (01) ==
LOC: CPTX 10:30
PROVIDERS: PCP Psychiatry & Neurology Neurology; Referring Provider Psychiatry & Neurology Neurology; Visit Provider Psychiatry & Neurology Neurology
DX: R53.1 Weakness (principal); R26.89 Other abnormalities of gait and mobility; R26.2 Difficulty in walking, not elsewhere classified; Z91.81 History of falling; G62.9 Polyneuropathy, unspecified
CPT/HCPCS: 97110; 97116

== ENCOUNTER 2025-04-19 10:00 | Outpatient (RCR) | payer MEDICARE, SELFPAY ==
--- NOTE | 2025-04-17 11:05 | PT.ODAYNRPT ---
PT Outpatient Daily Note OP Daily Note Outpatient Physical Therapy Treatment Date: 04/17/25 Visit Reasons: Neuropathy Subjective: Pt reports she is more tired today then usual, mentioned that she had to wheel herself further in her w/c when leaving her apartment because they were painting on her normal route. Objective: Please see flow sheet for ther ex list. Assessment: Pt came in tired and fatigued limiting participation with closed chain interventions. Plan: Assess response to treatment. Length of Time (minutes) of Treatment: 30 Minutes SENIOR MAINFRAME PROGRAMMER ANALYST Service Modifier Method I: Divide the number of min of care provided by the SENIOR MAINFRAME PROGRAMMER ANALYST/LAVINIA by the total min of care provided then multiply by 100. If greater than 11 percent modifier is required. Method II: Divide the total time of care provided to patient by 10 (round to the nearest whole number) and add 1 min. to set the minimum time requirement. If treatment total was 60 min., then 10% of 6 min PT CQ modifier applied: CQ Modifier applied Procedure Charges Therapeutic Exercise 30 minutes: Yes
--- NOTE | 2025-04-19 11:30 | PTNOTE_ITS ---
PT Outpatient Daily Note OP Daily Note Outpatient Physical Therapy Treatment Date: 04/19/25 Visit Reasons: Neuropathy Subjective: Pt reports today is a better day. Objective: Please see flow sheet for ther ex list. Assessment: Pt demonstrates increase endurance when ambulating in clinic indicated by increase in distance. Pt ambulates with narrow based stride and poor foot clearance making pt high fall risk, verbal cues to step correction and to widen DRAGAN. Plan: Continue with poC. Length of Time (minutes) of Treatment: 30 Minutes CORRECTIONAL CLASSIFICATION COUNSELOR Service Modifier Method I: Divide the number of min of care provided by the CORRECTIONAL CLASSIFICATION COUNSELOR/LAVINIA by the total min of care provided then multiply by 100. If greater than 11 percent modifier is required. Method II: Divide the total time of care provided to patient by 10 (round to the nearest whole number) and add 1 min. to set the minimum time requirement. If treatment total was 60 min., then 10% of 6 min PT CQ modifier applied: CQ Modifier applied Procedure Charges Therapeutic Exercise 30 minutes: Yes
== END 2025-05-15 23:59 | disposition home or self-care (01) ==
LOC: CPTX 10:00
PROVIDERS: PCP Psychiatry & Neurology Neurology; Referring Provider Psychiatry & Neurology Neurology; Visit Provider Psychiatry & Neurology Neurology
DX: R53.1 Weakness (principal); R20.0 Anesthesia of skin; R26.89 Other abnormalities of gait and mobility; G62.9 Polyneuropathy, unspecified; Z91.81 History of falling
CPT/HCPCS: 97110

== ENCOUNTER → 2025-05-08 | Outpatient (CLI) | payer MEDICARE, SELFPAY ==
[2025-05-08 12:22] LABS: Glucose Estimated Average 131 mg/dL (80-131); Hemoglobin A1C 6.2 % Hgb (4.8-6.0)
[2025-05-08 12:25] LABS: Anion Gap 7 (7-16); BUN/Creatinine Ratio 11 Ratio (12-20); Blood Urea Nitrogen 14 mg/dL (9-23); Calcium 9.6 mg/dL (8.3-10.6); Carbon Dioxide 32.4 mMol/L (20.0-31.0); Chloride 100 mMol/L (98-107); Creatinine (Component) 1.3 mg/dL (0.6-1.3); Glucose 90 mg/dL (74-106); Osmolality,Calculated 278 (275-295); Potassium 4.2 mMol/L (3.4-5.1); Sodium 139 mMol/L (136-145); eGFR 40 See Note
== END | disposition home or self-care (01) ==
LOC: COPL 11:43
PROVIDERS: PCP Family Medicine; Referring Provider Family Medicine; Visit Provider Family Medicine
DX: E11.22 Type 2 diabetes mellitus with diabetic chronic kidney disease (principal); N18.2 Chronic kidney disease, stage 2 (mild)
CPT/HCPCS: 36415; 80048; 83036

== ENCOUNTER 2025-05-21 19:04 | Emergency (ER) | payer MEDICARE, SELFPAY ==
[2025-05-21 19:08] VITALS: BP 193/73; PULSE 76; RESP 20; TEMP 36.6; O2SAT 93
[2025-05-21 19:09] VITALS: BMI 34.2
--- NOTE | 2025-05-21 19:18 | EDNOTE_ITS ---
ED General RME/HPI General Chief complaint: Anxiety Stated complaint: ANXIETY Time Seen by Provider: 05/21/25 19:18 Arrival date/time: 05/21/25 19:04 CC: Anxiety attack HPI patient presents to the ER via EMS with anxiety attack however is noted to have blood pressure of 200/100. The family ember states she gets it approximately once a week but this 1 was particularly bad and did not resolve spontaneously. The patient has a fine hand tremors but denies any chest pain shortness of breath or difficulty breathing. Patient states she is typically can stop her anxiety attacks with 2 gabapentin 300 mg tablets, 120 mg tablet of gunfacine. However today she had to take 3 tablets along with her gabapentin without relief. Patient then called 911. Patient's feels that this was a typical day however her traveling freight agent did not show to vacuum because she did not have time and the patient is not sure if this set off her anxiety attack. Related Data Home Medications ?Medication ?Instructions ?Recorded ?Confirmed vilazodone 40 mg tablet (Viibryd) 40 mg PO DAILY DEPRE SSION ##0 04/02/13 simvastatin 40 mg tablet (Zocor) 40 mg PO HS CHOLESTER OL #0 tabs 05/21/14 tramadol 50 mg tablet (Ultram) 50 mg PO Q8HR PRN PAIN #0 tabs 05/21/14 Memantine Hcl * (NAMENDA *) 28 mg PO QDAY DEMENTIA #0 tabs 02/21/15 amlodipine 5 mg tablet (Norvasc) 5 mg PO QDAY High Blo od Pressure 05/16/15 #0 tabs hydrochlorothiazide 25 mg tablet 25 mg PO QAM Diuretic #0 tabs 05/16/15 Losartan Potassium * (COZAAR *) 100 mg PO QDAY High Bl ood Pressure 06/16/15 #0 tabs hydroxyzine HCl 25 mg tablet 25 mg PO Q8HR PRN ANXIETY #0 tabs 06/16/15 metoprolol succinate 100 mg 100 mg PO QDAY High Blood Pressure 06/16/15 tablet,extended release 24 hr ##0 (Toprol XL) gabapentin 300 mg capsule 300 mg PO TID #0 caps quetiapine 100 mg tablet (Seroquel) 100 mg PO HS #0 ta bs 07/22/15 Allergies Allergy/AdvReac Type Severity Reaction Status Date / Time NKA* Allergy Uncoded 05/21/25 19:23 Review of Systems Review of Systems Narrative Review of Systems: GEN: No fever, no chills, no weight loss EYES: No discharge, no visual changes, no pain HEENT: No ear pain, no congestion, no sore throat PULM: No shortness of breath, no cough, no congestion CV: No chest pain, no dyspnea on exertion, no palpitations GI: No nausea, no vomiting, no diarrhea, no pain, no constipation : No frequency, no urgency, no dysuria MUSC/SKEL: No joint pain, no back pain SKIN: No rash PSYCH: No hallucinations, no depression HEME/LYMPH: No easy bleeding or bruising tendencies NEURO: No weakness, no headache Past Medical History Past Medical History CARDIAC: Positive Hypertension; Negative Congestive Heart Failure RESPIRATORY: Negative Chronic Obstructive Pulmonary Disease (COPD) GENITOURINARY: Negative Renal Disease ENDOCRINE: Negative Diabetes Mellitus Type 1 or Diabetes Mellitus Type 2 Social History SMOKING STATUS: Never smoker ED Exam Narrative Physical exam: [General: Obese anxious but not in any acute distress Head normocephalic HEENT: Within acceptable limits Neck is supple nontender Chest equal chest rise nontender to palpation Respiratory: Clear to auscultation no wheezes crackles or rubs CV: Rate rhythm is regular no murmurs rubs or clicks Abdomen is distended secondary to body habitus soft nontender no masses positive bowel sounds all 4 quadrants Back: No CVA tenderness no spinous process tenderness from cervical spine thoracic and lumbar spine Skin: Intact no petechiae rash induration ulceration or crepitus Extremities: Moving all extremity against resistance cap refill less than 2 seconds neurosensory intact Neuro: Awake alert oriented x3 Glascow coma 15 no focal deficits] Course Quality Measures none Orders Category Date Time Status CBC Stat Lab 05/21/25 19:49 Completed CMP [Comprehensive Metabolic Panel] Stat Lab 05/21/25 19:49 Completed Urinalysis Stat Lab 05/21/25 21:15 Completed LORazepam [Ativan] Med 05/21/25 19:28 Discontinued 1 mg PO X1 ONE Vital Signs Vital signs: Vital Signs Temperature 97.9 F 05/21/25 19:08 Pulse Rate 76 05/21/25 19:08 Respiratory Rate 20 05/21/25 19:08 Blood Pressure 193/73 H 05/21/25 19:08 Pulse Oximetry (%) 93 L 05/21/25 19:08 Oxygen Delivery Method Room Air 05/21/25 19:08 Discharge Plan Plan Patient Disposition: HOME (Self Care) Patient condition on transfer: Stable Prescriptions/Referrals Prescriptions/Med Rec: No Action vilazodone [Viibryd] 40 MG tablet 40 mg PO DAILY Qty: 0 tramadol [Ultram] 50 MG tablet 50 mg PO Q8HR PRN (Reason: PAIN) Qty: 0 Patient Comments: FOR PAIN, NOT TO EXCEED 8 TABS IN 24 HRS simvastatin [Zocor] 40 MG tablet 40 mg PO HS Qty: 0 Memantine Hcl * (NAMENDA *) tablet 28 mg PO QDAY Qty: 0 amlodipine [Norvasc] 5 MG tablet 5 mg PO QDAY Qty: 0 hydrochlorothiazide 25 MG tablet 25 mg PO QAM Qty: 0 metoprolol succinate [Toprol XL] 100 MG tablet extended release 24 hr 100 mg PO QDAY Qty: 0 hydroxyzine HCl 25 MG tablet 25 mg PO Q8HR PRN (Reason: ANXIETY) Qty: 0 Losartan Potassium * (COZAAR *) 100 MG tablet 100 mg PO QDAY Qty: 0 quetiapine [Seroquel] 100 MG tablet 100 mg PO HS Qty: 0 gabapentin 300 MG capsule 300 mg PO TID Qty: 0 Referrals: Eva Ozuna MD [Primary Care Provider, Family Practice] - In 1 week Problem List Clinical Impression: Anxiety Patient/Caregiver Discharge Instructions Other Activity Instructions:: Consider counselor for discussions regarding issues that you have. Education Materials: ED Anxiety Reaction Print Language: Nauruan Stand Alone Forms: Georgette Award Info., Patient Portal Info Letter PA/CROWN ASSEMBLY MACHINE SET UP MECHANIC Supervising Physician PA/CROWN ASSEMBLY MACHINE SET UP MECHANIC Supervising Physician: Daren Guardado ENP MDM Medication Administration(s) Medication Administration History Discontinued Medications Lorazepam (Lorazepam 0.5 Mg Tablet) 1 mg PO X1 ONE Stop: 05/21/25 19:29 Last Admin: 05/21/25 20:03 Dose: 1 mg Documented By: LLOYD
[2025-05-21 19:23] VITALS: PULSE 76; RESP 18; BMI 34.2
[2025-05-21 20:12] LABS: Basophils # (Auto) 0.0 Thou/mm3 (0.0-0.2); Basophils % (Auto) 0 % (0-2.5); Eosinophils # (Auto) 0.1 Thou/mm3 (0.0-0.5); Eosinophils % (Auto) 1 % (0-10); Hematocrit 39.2 % (36.0-46.0); Hemoglobin 12.5 g/dL (12.0-16.0); Immature Granulocytes Auto 0.03 Thou/mm3 (0.00-0.00); Lymphocytes # (Auto) 2.6 Thou/mm3 (1.0-4.8); Lymphocytes % (Auto) 26 % (10-50); Mean Corpuscular HGB Conc 31.9 g/dl (31.0-37.0); Mean Corpuscular Hemoglobin 30.9 pg (25.0-35.0); Mean Corpuscular Volume 97 fL (80-100); Monocytes # (Auto) 1.3 Thou/mm3 (0.0-0.8); Monocytes % (Auto) 12 % (0-12); Neutrophils # (Auto) 6.1 Thou/mm3 (1.8-7.7); Neutrophils % (Auto) 60 % (37-80); Nucleated Red Blood Cell # 0.00 Thou/mm3 (0.00-0.00); Nucleated Red Blood Cell % 0 /100 WBC (0); Platelet Count 338 Thou/mm3 (140-440); RDW Standard Deviation 49.6 fL (36.4-46.3); Red Blood Count 4.05 Miln/mm3 (4.00-5.20); White Blood Count 10.2 Thou/mm3 (3.6-11.0)
[2025-05-21 20:24] LABS: Alanine Aminotransferase 16 U/L (10-49); Albumin, Serum 4.7 gm/dL (3.4-4.8); Albumin/Globulin Ratio 1.7 (1.2-2.2); Alkaline Phosphatase 92 U/L (46-116); Anion Gap 9 (7-16); Aspartate Amino Transferase 26 U/L (0-34); BUN/Creatinine Ratio 17 Ratio (12-20); Bilirubin,Total 0.3 mg/dL (0.3-1.2); Blood Urea Nitrogen 20 mg/dL (9-23); Calcium 9.9 mg/dL (8.3-10.6); Calcium (Corrected) 9.9 mg/dL (8.5-10.1); Carbon Dioxide 30.0 mMol/L (20.0-31.0); Chloride 100 mMol/L (98-107); Creatinine (Component) 1.2 mg/dL (0.6-1.3); Estimated Creatinine Clearance 34.0 mL/min (>60); Globulin 2.7 gm/dL (2.3-3.5); Glucose 117 mg/dL (74-106); Osmolality,Calculated 281 (275-295); Potassium 4.6 mMol/L (3.4-5.1); Sodium 139 mMol/L (136-145); Total Protein 7.4 gm/dL (5.7-8.2); eGFR 44 See Note
[2025-05-21 22:00] VITALS: BP 160/69; PULSE 51; RESP 16; TEMP 36.8; O2SAT 94
[2025-05-21 22:02] LABS: Collection Type, Urine Clean Catch
--- NOTE | 2025-05-21 22:03 | PC.NURSE ---
IN AND OUT NOT DONE PT WAS ABLE TO USE RESTROOM
[2025-05-21 22:08] LABS: Bilirubin,Urine Negative (Negative); Blood,Urine Negative (Negative); Color,Urine Lt-Yellow (Lt Yel-Yel); Glucose, Urine Negative (Negative); Ketones,Urine Negative (Negative); Leukocyte Esterase,Urine Negative (Negative); Nitrite,Urine Negative (Negative); PH,Urine 6.0 (5.0-7.0); Protein,Urine Negative (Neg - Trace); RBC,Urine 1 /hpf (0-3); Specific Gravity,Urine 1.014 (1.001-1.035); Squamous Epithelial Cell,Urine 3 /hpf (0-5); Urobilinogen,Urine Negative mg/dL (0.0-1.0); WBC,Urine < 1 /hpf (0-5)
[2025-05-21 22:12] LABS: Clarity,Urine Cloudy (Clear/Hazy)
[2025-05-21 23:00] VITALS: BP 173/74; PULSE 57; RESP 16; TEMP 37; O2SAT 96
== END 2025-05-21 23:07 | disposition home or self-care (01) ==
PROVIDERS: Registered Nurse General Practice; Emergency Provider Emergency Medicine; PCP Family Medicine
DX: F41.9 Anxiety disorder, unspecified (principal)
CPT/HCPCS: 36415; 80053; 81001; 85025; 99283; A9270

== ENCOUNTER 2025-05-24 10:00 | Outpatient (RCR) | payer MEDICARE, SELFPAY ==
--- NOTE | 2025-05-24 11:48 | PT.ODAYNRPT ---
PT Outpatient Daily Note OP Daily Note Outpatient Physical Therapy Treatment Date: 05/24/25 Visit Reasons: Neuropathy Subjective: No new complaints. Objective: Please see flow sheet for ther ex list. Assessment: Pt demonstrates decrease endurance, only able to perform short distance ambulation in clinic, one episode of knee buckling. Plan: Continue with POC. SUPERVISOR PHOTOSTAT Service Modifier Method I: Divide the number of min of care provided by the SUPERVISOR PHOTOSTAT/LAVINIA by the total min of care provided then multiply by 100. If greater than 11 percent modifier is required. Method II: Divide the total time of care provided to patient by 10 (round to the nearest whole number) and add 1 min. to set the minimum time requirement. If treatment total was 60 min., then 10% of 6 min PT CQ modifier applied: CQ Modifier applied Procedure Charges Therapeutic Exercise 30 minutes: Yes
--- NOTE | 2025-06-27 11:35 | PT.ODS1RPT ---
PT OP Progress/Discharge Note Date of Service: 06/27/25 Progress Note/DC Note Progress Note/Discharge Note: DC Note Patient Information Visit Reasons: Neuropathy Service Discharge Date: 06/27/25 Status Assessment: Pt has been seen for 30 visits (eval + 29 visits). Pt last treated on 05/24/25. Pt no showed 06/06/25 appt. At this time Pt will be d/c from care due to plan of care. Pt did not meet set goals in therapy; thank you for your referrals.
== END 2025-06-15 23:59 | disposition home or self-care (01) ==
LOC: CPTX 10:00
PROVIDERS: PCP Psychiatry & Neurology Neurology; Referring Provider Psychiatry & Neurology Neurology; Visit Provider Psychiatry & Neurology Neurology
DX: R53.1 Weakness (principal); R26.89 Other abnormalities of gait and mobility; G62.9 Polyneuropathy, unspecified; Z91.81 History of falling; Z98.1 Arthrodesis status
CPT/HCPCS: 97110

== ENCOUNTER 2025-05-30 20:20 | Emergency (ER) | payer MEDICARE, SELFPAY ==
[2025-05-30 20:21] VITALS: PULSE 91; O2SAT 95; BMI 34.2
[2025-05-30 20:24] VITALS: BP 152/84; PULSE 84; RESP 19; TEMP 36.4; O2SAT 90
[2025-05-30 20:45] VITALS: BP 160/85; PULSE 84; RESP 20; O2SAT 93
--- NOTE | 2025-05-30 20:57 | PD.EDANX ---
ED Anxiety RME/HPI General Chief Complaint: Anxiety Stated Complaint: ANXIETY Time Seen by Provider: 05/30/25 20:49 Arrival date/time: 05/30/25 20:20 89-year-old female with a history of anxiety on oral medications reports with complaints of persistent anxiety attack. Patient states that she had taken her home medication of gabapentin and 3:00 this afternoon she took 2 mg of lorazepam but it did not help her. Patient denies any shortness of breath or chest pain, suicidal or homicidal ideations. Limitations: no limitations Related Data Home Medications ?Medication ?Instructions ?Recorded ?Confirmed vilazodone 40 mg tablet (Viibryd) 40 mg PO DAILY DEPRESSION ##0 04/02/13 simvastatin 40 mg tablet (Zocor) 40 mg PO HS CHOLESTEROL #0 tabs 05/21/14 tramadol 50 mg tablet (Ultram) 50 mg PO Q8HR PRN PAIN #0 tabs 05/21/14 Memantine Hcl * (NAMENDA *) 28 mg PO QDAY DEMENTIA #0 tabs 02/21/15 amlodipine 5 mg tablet (Norvasc) 5 mg PO QDAY High Blood Pressure 05/16/15 #0 tabs hydrochlorothiazide 25 mg tablet 25 mg PO QAM Diuretic #0 tabs 05/16/15 Losartan Potassium * (COZAAR *) 100 mg PO QDAY High Blood Pressure 06/16/15 #0 tabs hydroxyzine HCl 25 mg tablet 25 mg PO Q8HR PRN ANXIETY #0 tabs 06/16/15 metoprolol succinate 100 mg 100 mg PO QDAY High Blood Pressure 06/16/15 tablet,extended release 24 hr ##0 (Toprol XL) gabapentin 300 mg capsule 300 mg PO TID #0 caps 07/22/15 quetiapine 100 mg tablet (Seroquel) 100 mg PO HS #0 tabs 07/22/15 Allergies Allergy/AdvReac Type Severity Reaction Status Date / Time No Known Allergies Allergy Verified 05/30/25 20:24 Review of Systems Constitutional Constitutional: Denies body ache(s), Denies fatigue and Denies weakness ENT Ears, Nose, Mouth, and Throat: Denies vertigo Cardiovascular Cardiovascular: Denies chest pain, Denies diaphoresis, Denies dyspnea and Denies syncope Respiratory Respiratory: Denies cough and Denies dyspnea Gastrointestinal Gastrointestinal: Denies abdominal pain, Denies nausea and Denies vomiting Musculoskeletal Musculoskeletal: Denies back pain and Denies deformity Integumentary/Breasts Skin/Breast: Denies unusual bruising and Denies wounds Neurologic Neurologic: Denies paresthesias, Denies seizure-like activity, Denies syncope, Denies vertigo and Denies weakness Psychiatric Psychiatric: Reports anxiety, Denies homicidal ideation and Denies suicidal ideation Endocrine Endocrine: Denies fatigue Past Medical History Past Medical History NEUROLOGIC: Positive Dementia and Peripheral Neuropathy CARDIAC: Positive Hypertension; Negative Congestive Heart Failure RESPIRATORY: Negative Chronic Obstructive Pulmonary Disease (COPD) GENITOURINARY: Negative Renal Disease ENT: Positive Cataracts ENDOCRINE: Negative Diabetes Mellitus Type 1 or Diabetes Mellitus Type 2 PSYCHO/SOCIAL: Positive Depression and Anxiety Surgical History SURGICAL: Positive Hysterectomy Social History SMOKING STATUS: Never smoker ED Exam General Limitations: Present no limitations General appearance: Present alert and in no apparent distress Head Head exam: Present atraumatic Eye Eye exam: Present normal appearance, PERRL and EOMI ENT ENT exam: Present normal exam, normal oropharynx and mucous membranes moist Neck Neck exam: Present normal inspection, full ROM and trachea midline Chest Chest inspection: Present normal inspection and symmetric chest wall rise Respiratory Respiratory exam: Present normal lung sounds bilaterally Cardiovascular Cardiovascular exam: Present regular rate, normal rhythm and normal heart sounds Abdominal Exam Abdominal exam: Present soft and normal bowel sounds Extremities Exam Extremities exam: Present normal inspection and full ROM Back Exam Back exam: Present normal inspection and full ROM Neurological Exam Neurological exam: Present alert, oriented X3 and CN II-XII intact Psychiatric Psychiatric exam: Present normal affect and normal mood Skin Skin exam: Present warm, dry, intact and normal color Course Quality Measures none Orders Category Date Time Status LORazepam [Ativan] Med 05/30/25 20:56 Once 0.5 mg PO X1 ONE Vital Signs Vital signs: Vital Signs Temperature 97.5 F 05/30/25 20:24 Pulse Rate 84 05/30/25 20:24 Respiratory Rate 19 05/30/25 20:24 Blood Pressure 152/84 H 05/30/25 20:24 Pulse Oximetry (%) 90 L 05/30/25 20:24 Oxygen Delivery Method Room Air 05/30/25 20:24 Anxiety Patient data External records reviewed:: None Clinical information provided by:: patient Social determinants that could affect healthcare access:: none Patient has the following chronic illnesses:: anxiety How is presenting disease/condition affected by chronic disease/condition?: caused by Evaluation data The following diagnostics were reviewed and interpreted by me:: other (specify) (none) Lab and/or radiology exams considered but not ordered:: none Interpretation Summary: n/a Medications / Prescriptions Medications or Prescriptions considered but not ordered:: none Medication administrations:: Atavan 0.5 mg po Consultations Consultation(s) initiated? (list below): No Diagnosis Most likely diagnosis given after review of the tests above:: Anxiety Admission Indicated Admission indicated?: not indicated Admission Request Was there a request for admission?: No Disposition Plan Disposition Plan: Discharge Discharge Attestation Discharge Attestation: The patient and all family members were given an opportunity to ask questions and understood the discharge instructions. Discharge instructions specifically effects, indications for sooner follow up or return to the emergency department, and the expected course of current diagnosis. Patient condition: Stable Discharge Plan Plan Patient Disposition: HOME (Self Care) Prescriptions/Referrals Prescriptions/Med Rec: No Action vilazodone [Viibryd] 40 MG tablet 40 mg PO DAILY Qty: 0 tramadol [Ultram] 50 MG tablet 50 mg PO Q8HR PRN (Reason: PAIN) Qty: 0 Patient Comments: FOR PAIN, NOT TO EXCEED 8 TABS IN 24 HRS simvastatin [Zocor] 40 MG tablet 40 mg PO HS Qty: 0 Memantine Hcl * (NAMENDA *) tablet 28 mg PO QDAY Qty: 0 amlodipine [Norvasc] 5 MG tablet 5 mg PO QDAY Qty: 0 hydrochlorothiazide 25 MG tablet 25 mg PO QAM Qty: 0 metoprolol succinate [Toprol XL] 100 MG tablet extended release 24 hr 100 mg PO QDAY Qty: 0 hydroxyzine HCl 25 MG tablet 25 mg PO Q8HR PRN (Reason: ANXIETY) Qty: 0 Losartan Potassium * (COZAAR *) 100 MG tablet 100 mg PO QDAY Qty: 0 quetiapine [Seroquel] 100 MG tablet 100 mg PO HS Qty: 0 gabapentin 300 MG capsule 300 mg PO TID Qty: 0 Problem List Clinical Impression: Anxiety reaction Patient/Caregiver Discharge Instructions Discharge Activity: activity as tolerated Education Materials: Anxiety Disorders Tx Therapy Additional Instructions: follow up with your PCP or Psychologist/Psychiatrist in the morning Print Language: Estonian Stand Alone Forms: [employer] Award Info., Patient Portal Info Letter
[2025-05-30 21:39] VITALS: BP 156/82; PULSE 84; RESP 18; TEMP 36.5; O2SAT 95
== END 2025-05-30 23:03 | disposition home or self-care (01) ==
LOC: SERX 21:59
PROVIDERS: Emergency Provider Emergency Medicine; PCP Family Medicine
DX: F41.1 Generalized anxiety disorder (principal)
CPT/HCPCS: 99283; A9270